=== PATIENT | male | born 1945 | race Caucasian/White ===

== ENCOUNTER 2017-05-11 09:49 | Day surgery (SDC) | payer MEDICARE, OTHER, SELFPAY ==
[2017-05-10 07:02] VITALS: BMI 26.1
[2017-05-11] VITALS (17 sets, daily range): BP systolic 109–135; BP diastolic 59–98; PULSE 62–87; RESP 15–24; TEMP 35.6–36.7; O2SAT 95–99; BMI 25.8
[2017-05-11] MEDS: Cefazolin 2 GM in Syringe IV (10:00)
[2017-05-11 10:31] LABS: Color, Urine Yellow (Yellow); Glucose, Dipstick Normal (Normal); Ketone-Dipstick Negative (Negative); Leukocyte Esterase-Dipstick 25 /ul (Negative); Nitrite-Dipstick Negative (Negative); Occult Blood-Urine 10 /ul (Negative); Protein-Dipstick Negative (Negative); Urine Bilirubin Dipstick Negative (Negative); Urine Clarity Clear (Clear); Urine Urobilinogen Normal (Normal)
[2017-05-11 10:33] LABS: White Blood Count 5.7 K/mm3 (4.4-11.0)
[2017-05-11 10:34] LABS: Absolute Lymphocyte Count 1.51 X10^3/ul (0.83-4.51); Absolute Neutrophil Count 3.6 X10^3/uL (2.0-7.7); Basophil% 0.3 % (0-1); Eosinophil# 0.19 X10^3/uL; Eosinophils% 3.3 % (0-5); Hematocrit 44.4 % (40-54); Hemoglobin 14.3 g/dl (13.0-16.5); Lymphocyte # 1.51 X10^3/ul (4.0); Lymphocyte % 26.4 % (19-41); Mean Corp Hgb Conc 32.2 g/gl (32-36); Mean Corpuscular Volume 87.1 fL (80-94); Mean Platelet Vol. 9.3 fl (6.2-12.0); Monocyte# 0.45 X10^3/uL; Monocyte% 7.9 % (0-10); Neutrophil # 3.55 X10^3/uL (2.7-7.7); Neutrophil % 62.1 % (47-70); POSITIVE COUNT NO; POSITIVE DIFFERENTIAL NO; POSITIVE MORPHOLOGY NO; Platelet Count 199 K/mm3 (150-450); RBC Distribution Width CV 14.6 % (11.6-14.6); RBC Distribution Width SD 46.4 fl (35.1-43.9)
[2017-05-11 10:35] LABS: Basophil# 0.02 X10^3/uL
[2017-05-11 10:37] LABS: Anion Gap 6 (5-15); BUN 19 mg/dL (7-18); BUN/Creat Ratio 21.5 RATIO (10-20); Calcium,Total 8.8 mg/dL (8.5-10.1); Chloride 108 mmol/L (98-107); Creatinine, Serum 0.88 mg/dL (0.70-1.30); EST Glomerular Filtration Rate 90 mL/min (>60); Est Glom Filt Rate - Afr Amer 109 mL/min (>60); Estimated Creatinine Clearance 78.35 ml/min; Glucose 92 mg/dL (70-110); Potassium 4.5 mmol/L (3.5-5.1); Sodium Level 142 mmol/L (136-145)
[2017-05-11 10:38] LABS: Red Blood Cells-Urine 0-5 SEEN /hpf (0-5); Squamous Epithelial Cells - UA 0 SEEN /hpf (0-5); White Blood Cells 0 SEEN /hpf (0-5)
[2017-05-11 10:39] LABS: Bacteria RARE /hpf (None Seen); Mucous, Urine 2+ /hpf (<or=2+)
[2017-05-11 10:41] LABS: International Normalized Ratio 1.1; Prothrombin Time (Protime)PT. 13.6 SECONDS (11.7-14.9)
[2017-05-11 12:10] LABS: Partial Thromboplast Time 29.7 Seconds (24.1-36.2)
--- NOTE | 2017-05-11 14:00 | PCM.OP.BLANK ---
Operative Report Date of Procedure: 05/11/17 Preoperative diagnosis implantation of VVI ICD for ischemic cardiomayoptahy with LVEF 30% despite revascularization and optimal medical therapy; NYHA Class I. ICD for primary prevention Postoperative diagnosis same as above After informed consent and IV antibiotics the patient was brought to the [facility] catheterization laboratory. The left side of the chest was prepped and draped in the usual sterile manner. The patient was sedated with intermittent boluses of IV Versed fentanyl and propofol as well as subcutaneous 1% lidocaine. An incision was made inferior to the clavicle to accommodate the size of the hardware device. The pocket was created using blunt and Bovie dissection. Hemostasis was obtained. Using the Seldinger technique the axillary vein was cannulated 1 time and a guidewire was advanced under fluoroscopic guidance. Over each guidewire a sheath was advanced. Through this sheath, the electrode was positioned under fluoroscopic guidance into its appropriate chamber and was actively fixated. Once actively fixated, each lead was tested to check for proper sensing, capture threshold, impedance and to exclude diaphragmatic stimulation. Once the leads were implanted and all electrical parameters were confirmed to be functioning normally with appropriate values, the leads were then sutured to the pectoralis muscle with 2-0 silk on the Silastic collar ?2. The sponge and needle count were correct. Hemostasis was obtained. Antibiotic solution was used to flush the pocket. The new device was brought to the field. The leads were placed in the appropriate position of the header of the device and were secured by the setscrews and confirmed by the tug test. The device and the leads were then placed in the pocket. The device was sutured to the pectortalis muscle. Pocket was closed with a deep layer of running 2-0 Vicryl, superficial layer of running 4-0 Vicryl and skin with Steri-Strips that were covered with a rolled 4 x 4's and Tegaderm. The patient left the lab with the device programmed to chronic parameters. There were no complications. The device implanted is a single coil ICD lead with a single chamber [place] [employer] ICD generator. Lead and device serial and model numbers are available in the chart documents provided by the device company personal service representative procedure summary.
--- NOTE | 2017-05-11 17:20 | RAD_ITS ---
STUDY: X-RAY CHEST REASON FOR EXAM: Male, 71 years old. Status post ICD. TECHNIQUE: Single AP portable view of the chest. COMPARISON: 04/03/2017. FINDINGS: Limited by numerous overlying monitor leads. Normal lung volumes. Stable nodules in the right upper lobe. No pneumothorax. Normal size heart. ICD lead terminates in the right ventricle. Normal mediastinum and leonides. Normal visualized pulmonary arteries. Normal visualized aortic arch and descending thoracic aorta. Normal visualized thoracic spine. Normal visualized ribs, clavicles, and shoulders. There is no demonstrated abnormality of the visualized soft tissue structures of the upper abdomen. RAD/Chest 1 View (Portable) IMPRESSION: No definite acute chest disease. Electronically Signed: Ricky Moss MD at 17:14 EST , Service support ,
[2017-05-11] MEDS: Clopidogrel Bisulfate 75 MG Tablet PO (17:36)
[2017-05-11] MEDS: Atorvastatin Calcium 80 MG Tablet PO (21:38)
[2017-05-11] MEDS: Carvedilol 3.125 MG TABLET PO (21:38)
[2017-05-12] VITALS (8 sets, daily range): BP systolic 98–129; BP diastolic 68–91; PULSE 64–75; RESP 16–21; TEMP 36.8; O2SAT 93–96
[2017-05-12 05:13] LABS: Hematocrit 42.3 % (40-54); Hemoglobin 14.2 g/dl (13.0-16.5)
[2017-05-12 05:37] LABS: Anion Gap 7 (5-15); BUN 20 mg/dL (7-18); BUN/Creat Ratio 22.5 RATIO (10-20); Calcium,Total 8.4 mg/dL (8.5-10.1); Chloride 105 mmol/L (98-107); Creatinine, Serum 0.89 mg/dL (0.70-1.30); EST Glomerular Filtration Rate 89 mL/min (>60); Est Glom Filt Rate - Afr Amer 108 mL/min (>60); Estimated Creatinine Clearance 77.47 ml/min; Glucose 91 mg/dL (70-110); Potassium 4.3 mmol/L (3.5-5.1); Sodium Level 139 mmol/L (136-145)
--- NOTE | 2017-05-12 05:55 | RAD_ITS ---
STUDY: X-RAY CHEST REASON FOR EXAM: Male, 71 years old. Status post ICD placement. TECHNIQUE: Frontal and lateral views of the chest. COMPARISON: 05/11/2017. 11/30/2016. FINDINGS: There is mild chronic interstitial prominence in the lungs. There is no demonstrated pulmonary infiltrate. There is a calcified pleural plaque overlying the dome of the right hemidiaphragm, suggesting asbestosis. There is no visualized free pleural effusion. Normal size heart. There is an implanted ventricular pacemaker/defibrillator, with its tip in the expected region of the right ventricle. Normal mediastinum and leonides. Normal visualized pulmonary arteries. Normal visualized aortic arch and descending thoracic aorta. There are mild degenerative changes of the visualized thoracic spine. Normal visualized ribs, clavicles, and shoulders. There is no demonstrated abnormality of the visualized soft tissue structures of the upper abdomen. RAD/Chest PA and Lateral IMPRESSION: Mild chronic interstitial prominence and calcified pleural plaque formation, consistent with asbestosis. Implanted pacemaker/defibrillator. No evidence for acute cardiopulmonary pathology. Electronically Signed: Emanuel De Los Santos MD at 5:50 EST , Service support ,
--- NOTE | 2017-05-12 08:32 | PCM.PACRNU ---
Pacer Nurse Hospital Visit Notes: Single Chamber ICD Evaluation: 1st day post implant ICD check completed at bedside CVICU#[id number]. Interrogation shows no VT/VF episodes. Left pectoral pocket/incision DSD intact w/o drainage or hematoma noted. Presenting rhythm shows NSR @ 68 bpm. TRAFFIC LIEUTENANT=0%. Battery longevity >8 yrs. Lead impedance, sensing and pace/sense threshold stable. No parameter changes made. Counters cleared. Pt instructed on wound care and left arm restrictions. Dr. Tobar and Dr. Garcia notified of above findings. Pt wound check is scheduled for Monday05/19/17 @ 11:30am. Kishan Castañeda RN - Pacer Check Procedure Procedures: 25744 ICD Eval Single
--- NOTE | 2017-05-12 08:53 | PCM.PN.CARD ---
Subjectve: The patient is status post primary prevention ICD implant. He has no complaints of ongoing chest discomfort or difficulty breathing. He states he is feeling well. Objective: Vital Signs Temp Pulse Resp BP Pulse Ox 98.2 F 73 18 124/86 H 96 05/12/17 07:00 05/12/17 07:00 05/12/17 07:00 05/12/17 07:00 05/12/17 07:00 Oxygen Delivery Method Room Air Weight: 180 lb Body Mass Index (BMI) 25.8 Intake and Output for Last 24 Hours 05/10/17 05/11/17 05/12/17 23:59 23:59 23:59 Intake Total 0 / 0 360 / 360 Output Total 0 / 0 375 / 375 Balance 0 / 0 -15 / -15 General: Awake, Alert, Oriented x 3, Cooperative, No Acute Distress Neck: No JVD Chest Wall: Left Pectoral Incision - Dressing: Clean and dry Lungs: Clear to auscultation Cardiovascular: Regular Rhythm, Normal S1, Normal S2 Abdomen: Bowel Sounds Present, Soft, Non Tender Extremities: No edema 05/11/17 09:59: WBC 5.7, RBC 5.10, Hgb 14.3, Hct 44.4, MCV 87.1, MCH 28.0, MCHC 32.2, RDW 14.6, RDW Differential 46.4 H, Plt Count 199, MPV 9.3, Immature Gran % (Auto) 0.000, Neut % (Auto) 62.1, Lymph % (Auto) 26.4, [place] % (Auto) 7.9, Eos % (Auto) 3.3, Baso % (Auto) 0.3, Absolute Neuts (auto) 3.6, Total Counted Not Reportable 05/11/17 09:59: PT 13.6, INR 1.1, APTT 29.7 05/11/17 09:59: Urine Color Yellow, Urine Clarity Clear, Urine pH 7.0, Ur Specific [place] 1.010, Urine Protein Negative, Urine Glucose (UA) Normal, Urine Ketones Negative, Urine Occult Blood 10 H, Urine Nitrite Negative, Urine Bilirubin Negative, Urine Urobilinogen Normal, Ur Leukocyte Esterase 25 H, Urine RBC 0-5 SEEN, Urine WBC 0 SEEN 05/11/17 09:59: Sodium 142, Potassium 4.5, Chloride 108 H, Carbon Dioxide 28.0, Anion Gap 6, BUN 19 H, Creatinine 0.88, Est GFR (MDRD) Af Amer 109, Est GFR (MDRD) Non-Af 90, BUN/Creatinine Ratio 21.5 H, Glucose 92, Calcium 8.8 05/12/17 05:05: Hgb 14.2, Hct 42.3 05/12/17 05:05: Sodium 139, Potassium 4.3, Chloride 105, Carbon Dioxide 27.0, Anion Gap 7, BUN 20 H, Creatinine 0.89, Est GFR (MDRD) Af Amer 108, Est GFR (MDRD) Non-Af 89, BUN/Creatinine Ratio 22.5 H, Glucose 91, Calcium 8.4 L Rhythm: Sinus rhythm PPM: Per the [facility] PPM/ICD nurse: The device is been reported as functioning appropriately. CXR: Per radiology: No acute post procedure related adverse events Assessment/Plan 1. CAD status post [place] post LAD PCI At the present time the patient appears to be without acute symptoms. He will continue medical management for his underlying CAD process. 2. Ischemic mediated cardiomyopathy The patient has been reported as having an underlying ischemic mediated cardiomyopathy. He appears without symptoms of acute CHF or pulmonary edema at this time. He will continue medical management and follow-up. 3. Status post primary prevention ICD placement The patient is now status post primary prevention ICD placement. He appears to be doing well with no post procedure related adverse events. He will continue with future outpatient cardiovascular follow-up. 4. Hyperlipidemia The patient will continue medical management and follow-up as deemed appropriate. 5. Hypertension The patient will continue medical therapy with adjustment as needed. Overall the patient appears to be symptomatically and hemodynamically stable at this time. He will be released home for continued outpatient cardiovascular follow-up. Comment: Time spent in the patient's discharge evaluation and care: 30 minutes. This note was generated with [employer]ation software. Every effort was made to ensure accuracy, however, computerized staff toxicologist mistakes may persist.
--- NOTE | 2017-05-12 08:59 | PN.CARD_ITS ---
Subjectve: The patient is status post primary prevention ICD implant. He has no complaints of ongoing chest discomfort or difficulty breathing. He states he is feeling well. Objective: Vital Signs Temp Pulse Resp BP Pulse Ox 98.2 F 73 18 124/86 H 96 05/12/17 07:00 05/12/17 07:00 05/12/17 07:00 05/12/17 07:00 05/12/17 07:00 Oxygen Delivery Method Room Air Weight: 180 lb Body Mass Index (BMI) 25.8 Intake and Output for Last 24 Hours 05/10/17 05/11/17 05/12/17 23:59 23:59 23:59 Intake Total 0 / 0 360 / 360 Output Total 0 / 0 375 / 375 Balance 0 / 0 -15 / -15 General: Awake, Alert, Oriented x 3, Cooperative, No Acute Distress Neck: No JVD Chest Wall: Left Pectoral Incision - Dressing: Clean and dry Lungs: Clear to auscultation Cardiovascular: Regular Rhythm, Normal S1, Normal S2 Abdomen: Bowel Sounds Present, Soft, Non Tender Extremities: No edema 05/11/17 09:59: WBC 5.7, RBC 5.10, Hgb 14.3, Hct 44.4, MCV 87.1, MCH 28.0, MCHC 32.2, RDW 14.6, RDW Differential 46.4 H, Plt Count 199, MPV 9.3, Immature Gran % (Auto) 0.000, Neut % (Auto) 62.1, Lymph % (Auto) 26.4, [place] % (Auto) 7.9, Eos % (Auto) 3.3, Baso % (Auto) 0.3, Absolute Neuts (auto) 3.6, Total Counted Not Reportable 05/11/17 09:59: PT 13.6, INR 1.1, APTT 29.7 05/11/17 09:59: Urine Color Yellow, Urine Clarity Clear, Urine pH 7.0, Ur Specific [place] 1.010, Urine Protein Negative, Urine Glucose (UA) Normal, Urine Ketones Negative, Urine Occult Blood 10 H, Urine Nitrite Negative, Urine Bilirubin Negative, Urine Urobilinogen Normal, Ur Leukocyte Esterase 25 H, Urine RBC 0-5 SEEN, Urine WBC 0 SEEN 05/11/17 09:59: Sodium 142, Potassium 4.5, Chloride 108 H, Carbon Dioxide 28.0, Anion Gap 6, BUN 19 H, Creatinine 0.88, Est GFR (MDRD) Af Amer 109, Est GFR ( MDRD) Non-Af 90, BUN/Creatinine Ratio 21.5 H, Glucose 92, Calcium 8.8 05/12/17 05:05: Hgb 14.2, Hct 42.3 05/12/17 05:05: Sodium 139, Potassium 4.3, Chloride 105, Carbon Dioxide 27.0, Anion Gap 7, BUN 20 H, Creatinine 0.89, Est GFR (MDRD) Af Amer 108, Est GFR ( MDRD) Non-Af 89, BUN/Creatinine Ratio 22.5 H, Glucose 91, Calcium 8.4 L Rhythm: Sinus rhythm PPM: Per the [facility] PPM/ICD nurse: The device is been reported as functioning appropriately. CXR: Per radiology: No acute post procedure related adverse events Assessment/Plan 1. CAD status post [place] post LAD PCI At the present time the patient appears to be without acute symptoms. He will continue medical management for his underlying CAD process. 2. Ischemic mediated cardiomyopathy The patient has been reported as having an underlying ischemic mediated cardiomyopathy. He appears without symptoms of acute CHF or pulmonary edema at this time. He will continue medical management and follow-up. 3. Status post primary prevention ICD placement The patient is now status post primary prevention ICD placement. He appears to be doing well with no post procedure related adverse events. He will continue with future outpatient cardiovascular follow-up. 4. Hyperlipidemia The patient will continue medical management and follow-up as deemed appropriate. 5. Hypertension The patient will continue medical therapy with adjustment as needed. Overall the patient appears to be symptomatically and hemodynamically stable at this time. He will be released home for continued outpatient cardiovascular follow-up. Comment: Time spent in the patient's discharge evaluation and care: 30 minutes. This note was generated with [employer] software. Every effort was made to ensure accuracy, however, computerized brick and tile making machine operator mistakes may persist.
--- NOTE | 2017-05-12 10:10 | NURSING ---
Pt reports he does not want to take his morning meds here, he will take them at home.
== END 2017-05-12 10:20 | disposition home or self-care (01) ==
LOC: CLSP 10:05 → ICU 14:33
PROVIDERS: Visit Provider Internal Medicine Cardiovascular Disease
DX: I25.5 Ischemic cardiomyopathy (principal); I25.2 Old myocardial infarction; I10 Essential (primary) hypertension; I25.10 Atherosclerotic heart disease of native coronary artery without angina pectoris; E78.00 Pure hypercholesterolemia, unspecified; Z95.5 Presence of coronary angioplasty implant and graft; Z79.02 Long term (current) use of antithrombotics/antiplatelets; Z79.82 Long term (current) use of aspirin; Z79.899 Other long term (current) drug therapy; Z00.6 Encounter for examination for normal comparison and control in clinical research program
CPT/HCPCS: 33249; 36415; 71045; 71046; 80048; 81001; 85014; 85018; 85025; 85610; 85730; 93641; 99152; 99153; J7040; J7050; C1894

== ENCOUNTER → 2018-06-07 12:37 | Outpatient (CLI) | payer MEDICARE, OTHER, SELFPAY ==
[2018-05-21 14:34] VITALS: BMI 26.8
--- NOTE | 2018-06-07 12:39 | ECHOD_ITS ---
Reason For Study: CHF Procedure This was a 2D Doppler, Color Flow transthoracic echocardiogram. Exam performed in department. Left Ventricle Severely dilated left ventricle. The estimated ejection fraction is 25-30 %. Stage 1 diastolic dysfunction. There are regional wall motion abnormalities as specified. Right Ventricle Normal size and thickness. ICD or pacer leads identified within the right ventricle. Normal systolic function. Atria Normal left atrium. Normal right atrium. Normal atrial septum. Mitral Valve The mitral valve is structurally normal. No prolapse or stenosis seen. Trivial mitral valve insufficiency. Tricuspid Valve Normal tricuspid valve. Trivial tricuspid valve insufficiency. Right ventricular systolic pressure estimated to be 35 mmHg. Aortic Valve Normal aortic valve. Trisinus/trileaflet aortic valve. Pulmonic Valve Normal pulmonic valve. Great Vessels Normal aortic root. Normal arch. Normal inferior vena cava. Inferior vena cava collapse with sniff. Pericardium/Pleural No pericardial effusion. MMode/2D Measurements & Calculations LVIDd: 5.9 cm IVSd: 0.72 cm Ao root diam: 3.5 cm LVIDs: 5.1 cm LVPWd: 0.98 cm RVDd: 3.4 cm FS: 13.7 % LAV(MOD-bp): 55.4 ml LVAd ap4: 43.5 cm2 SV(MOD-sp4): 46.7 ml LAV(MOD-bp) Indexed: 27.5 ml/m2 EDV(MOD-sp4): 164.7 ml LAV(MOD-sp2): 57.4 ml EDV(sp4-el): 176.8 ml LAV(MOD-sp4): 53.2 ml LVAs ap4: 35.3 cm2 ESV(MOD-sp4): 118.0 ml ESV(sp4-el): 124.4 ml EF(MOD-sp4): 28.4 % EF(sp4-el): 29.6 % SV(sp4-el): 52.4 ml LA A4 area: 19.9 cm2 LA dimension(2D): 3.5 cm RA A4 area: 15.5 cm2 Time Measurements MV dec time: 0.27 sec Doppler Measurements & Calculations MV E max harpreet: 36.0 cm/sec Lat Peak E' Harpreet: 4.3 cm/sec Med Peak E' Harpreet: 4.2 cm/sec MV A max harpreet: 78.8 cm/sec E/E' lat: 8.3 E/E' med: 8.6 MV E/A: 0.46 Ao V2 max: 109.8 cm/sec LV V1 max: 62.8 cm/sec PA V2 max: 109.2 cm/sec Ao max P.8 mmHg LV V1 max P.6 mmHg TR max harpreet: 272.7 cm/sec TR max P.8 mmHg Interpretation Summary Severely dilated left ventricle. The estimated ejection fraction is 25-30 %. Stage 1 diastolic dysfunction. There are regional wall motion abnormalities as specified. Trivial tricuspid valve insufficiency. Right ventricular systolic pressure estimated to be 35 mmHg. Compared to echo report dated 03/29/2017, no appreciable changes noted. Ordering Physician: Grant Rubin Referring Physician: AYLA BANG Performed By: Betty Lan RDCS
== END ==
PROVIDERS: Family Provider Student in an Organized Health Care Education/Training Program; PCP Student in an Organized Health Care Education/Training Program; Referring Provider Internal Medicine Cardiovascular Disease; Visit Provider Internal Medicine Cardiovascular Disease
DX: I25.2 Old myocardial infarction (principal)
CPT/HCPCS: 93306

== ENCOUNTER → 2019-01-03 | Outpatient (CLI) | payer MEDICARE, OTHER, SELFPAY ==
[2018-12-17 12:50] VITALS: BMI 26.5
--- NOTE | 2019-01-03 10:04 | STEWCON_ITS ---
Reason For Study: CAD/ASHD Stress Results Protocol: Stress Echocardiogram Maximum Predicted HR: 146 bpm Target HR: 124 bpm % Maximum Predicted HR: 89 % DurationHeart Rate Stage (mm:ss) (bpm) BP Comment BASELINE 54 118/78DILUTED DEFINITY 3CC GIVEN DURING STRESS ALEX PROTOCOL- STAGE 1 3:00 102 122/78NO SX ALEX PROTOCOL- STAGE 2 3:00 116 130/80NO SX ALEX PROTOCOL- STAGE 3 1:16 130 / NO SX, JUST TIRED RECOVERY 67 132/82 Stress Duration: 7:16 mm:ss Maximum Stress HR: 130 bpm Baseline Echocardiogram Findings The estimated ejection fraction is 25 %. Severely dilated left ventricle. Stress Echo Wall motion Data Resting WM Intermediate WM Stress WM Resting Wall Motion Wall Motion Stress Basal anteroseptal: Akinetic. Mid-Posterior: Mildly Mid-Anterior : Akinetic. hypokinetic. Mid-anteroseptal : Akinetic. Mid-Inferior: Mildly hypokinetic. Anterior [place] : Akinetic. EKG Data The baseline ECG displays normal sinus rhythm. The patient exercised according to the regular Alex protocol for a total duration of 7:16. The maximum heart rate attained was 130 beats per minute. This was 89% of maximum predicted heart rate. The patient exercised into stage 3 of the Alex protocol. During stress, there were no ST or T wave changes noted to suggest ischemia. No clinical angina was noted. Doppler Measurements & Calculations TR max aida: 291.6 cm/sec TR max P.0 mmHg Interpretation Summary The estimated ejection fraction is 25 %. Severely dilated left ventricle. Mid-Inferior: Mildly hypokinetic Abnormal, adequate, treadmill echocardiogram. Positive for ischemia by echocardiographic criteria. No anginal symptoms noted. Patient at baseline mid anteroseptal, anterior, and anterior apical akinesis from previous myocardial infarction, which remained akinetic during exercise. Patient did develop subtle inferior and posterior hypokinesis at peak exercise. Rare PVC noted. Appropriate blood pressure response to exercise. Average exercise capacity for age. Final LVEF of 25%. Poor echo windows requiring Definity agent may affect image interpretation. No complication. The study was technically difficult. Contrast injection was performed. Ordering Physician: Grant Rubin MD Referring Physician: Grant Rubin Performed By: Mojgan Brown RDCS
[2019-01-03 12:03] LABS: AST(SGOT) 26 U/L (15-37); Alanine Aminotransfer ALT/SGPT 28 U/L (16-61); Albumin, Serum 3.7 g/dL (3.2-5.0); Alkaline Phosphatase 101 U/L (45-117); Bilirubin, Direct 0.31 mg/dL (0.00-0.30); Cholesterol 118 mg/dL (200); Globulin 3.7 g/dL (2.2-4.2); High Density Lipoprotein 52 mg/dL; Protein, Total 7.4 g/dL (6.4-8.2); Triglycerides 84 mg/dL; Very Low Density Lipoprotein 17 mg/dL (5-40)
== END | disposition home or self-care (01) ==
PROVIDERS: Nurse Practitioner Family; Referring Provider Internal Medicine Cardiovascular Disease; Visit Provider Internal Medicine Cardiovascular Disease
DX: I25.10 Atherosclerotic heart disease of native coronary artery without angina pectoris (principal); E78.5 Hyperlipidemia, unspecified; I25.2 Old myocardial infarction; Z95.810 Presence of automatic (implantable) cardiac defibrillator
CPT/HCPCS: 36415; 80061; 80076; 93017; 93350; Q9957; A4216; C8928

== ENCOUNTER → 2019-01-07 13:50 | Outpatient (CLI) | payer MEDICARE, OTHER, SELFPAY ==
[2018-12-17 12:50] VITALS: BMI 26.5
[2019-01-07 15:07] LABS: Hematocrit 43.3 % (40-54); Hemoglobin 13.7 g/dL (13.0-16.5); Mean Corp Hgb Conc 31.6 g/dL (32-36); Mean Corpuscular Hgb 28.2 pg (27.0-32.0); Mean Corpuscular Volume 89.1 fL (80-94); Mean Platelet Vol. 9.5 fl (6.2-12.0); Platelet Count 218 K/mm3 (150-450); RBC Distribution Width CV 14.5 % (11.6-14.6); Red Blood Count 4.86 M/mm3 (4.6-6.2); White Blood Count 6.6 K/mm3 (4.4-11.0)
[2019-01-07 15:25] LABS: Prothrombin Time (Protime)PT. 13.1 SECONDS (11.7-14.9)
[2019-01-07 15:26] LABS: Partial Thromboplast Time 27.6 Seconds (24.1-36.2)
[2019-01-07 15:30] LABS: Anion Gap 5 (5-15); BUN 25 mg/dL (7-18); BUN/Creat Ratio 27.4 RATIO (10-20); Calcium,Total 8.6 mg/dL (8.5-10.1); Chloride 106 mmol/L (98-107); Creatinine, Serum 0.91 mg/dL (0.70-1.30); EST Glomerular Filtration Rate 86 mL/min (>60); Est Glom Filt Rate - Afr Amer 104 mL/min (>60); Glucose 109 mg/dL (74-106); Potassium 3.9 mmol/L (3.5-5.1); Sodium Level 140 mmol/L (136-145)
== END ==
PROVIDERS: Referring Provider Internal Medicine Cardiovascular Disease; Visit Provider Internal Medicine Cardiovascular Disease
DX: I25.10 Atherosclerotic heart disease of native coronary artery without angina pectoris (principal); I25.2 Old myocardial infarction; I25.5 Ischemic cardiomyopathy; R94.39 Abnormal result of other cardiovascular function study; Z95.5 Presence of coronary angioplasty implant and graft; Z79.899 Other long term (current) drug therapy; Z95.810 Presence of automatic (implantable) cardiac defibrillator
CPT/HCPCS: 80048; 85027; 85610; 85730

== ENCOUNTER 2019-01-09 06:47 | Day surgery (SDC) | payer MEDICARE, OTHER, SELFPAY ==
[2018-12-17 12:50] VITALS: BMI 26.5
--- NOTE | 2019-01-08 14:41 | RAD_ITS ---
STUDY: X-RAY CHEST REASON FOR EXAM: Male, 73 years old. Pre-op for heart catheter TECHNIQUE: PA and lateral views of the chest. COMPARISON: 05/12/2017 FINDINGS: Left chest wall pacing device The lungs are clear and expanded. There is no demonstrated pleural abnormality. Normal size heart. Normal mediastinum and leonides. Normal visualized pulmonary arteries. Normal visualized aortic arch and descending thoracic aorta. Normal visualized thoracic spine. Normal visualized ribs, clavicles, and shoulders. There is no demonstrated abnormality of the visualized soft tissue structures of the upper abdomen. RAD/Chest PA and Lateral IMPRESSION: Normal x-ray examination of the chest. Electronically Signed: Yefri Child DO at 17:59 EDT Tel , Service support ,
--- NOTE | 2019-01-09 10:35 | PCM.HP.BLA ---
Problem List (1) Acute ST elevation myocardial infarction Status: Acute (2) Atherosclerotic heart disease of [place] coronary artery without angina pectoris Status: Chronic History and Physical Date of Admission: 01/09/19 [facility] [address] [place] [address] OFFICE VISIT Date of Service: 12/17/18 MR#: [id number] Acct: [id number] Name: ASHLYN MUNSON Rep #: [id number] : 1945 Provider: Grant Rubin MD Age/Sex: 73/M Location: [facility] Status: Signed HPI HPI History of Present Illness Details: HPI Chief Complaint: Routine f/u Details: Details: Mr. Munson is a very pleasant 73-year-old nondiabetic gentleman with hypertension, hypercholesterolemia, who presented on 11/30/16 with acute anterior wall myocardial infarction with approximate 1.5 hour delayed presentation. He was emergently brought to the [facility] where he underwent emergent catheterization which discovered an occluded LAD. the patient developed his chest pain either immediately before or right after undergoing a skydiving exercise. Patient underwent emergent angioplasty and drug-eluting stenting to his proximal LAD receiving a 3.0X 12 Synergy stent. His left circumflex was angiographically normal, and his right coronary artery had a 60% stenosis. His echocardiogram demonstrated an EF around 35-45% with inferior apical and anterior apical hypokinesis. Patient initially was on Brilinta, but could not tolerate it due to dizziness. He was switched to Plavix, and his dizziness has resolved. Despite my admonishment about skydiving he is continued to skydiving after his TN and prior to initiating cardiac rehab. Patient underwent stress echocardiogram on 01/18/17 which was negative for inducible ischemia of the inferior posterior wall. He is EF at that time was 35%. Repeat echocardiogram after cardiac rehab showed persistent severe anterior LV dysfunction with an EF of 35%. Repeat echo as of 06/07/2018 shows the following: Severely dilated left ventricle. The estimated ejection fraction is 25-30 %. Stage 1 diastolic dysfunction. There are regional wall motion abnormalities as specified. Trivial tricuspid valve insufficiency. Right ventricular systolic pressure estimated to be 35 mmHg. Compared to echo report dated 03/29/2017, no appreciable changes noted. He underwent single-chamber AICD placement without complications and is now here in follow-up. Fortunately, he denies any chest pain, angina, shortness of breath or dyspnea on exertion. We discontinued his lisinopril due to dry hacking cough, and is tolerating losartan well. He denies any fatigue. Despite my concerns, the patient is continued to proceed with skydiving and has had no difficulty whatsoever. He reports that his harness does not impact or come near his defibrillator. He has had no defibrillator discharges. He is taking and tolerating his medicines well. In our office today's blood pressure is 110/80, and pulse is 68 and regular. His physical exam is as below. His lipids as of 12/01/16 showed LDL of 124 and an HDL of 43.repeat lipids as of 01/18/17 showed HDL of 45 and LDL 41. Repeat lipids are pending. Intake Vital Signs 12/17/18 Height 5 ft 10 in 12/17/18 Weight: 185 lb 12/17/18 Body Mass Index (BMI) 26.5 12/17/18 Blood Pressure 110/80 12/17/18 Blood Pressure Location Lt brachial 12/17/18 Blood Pressure Position Sitting 12/17/18 Respiratory Rate 20 H 12/17/18 Pulse Rate 68 12/17/18 Pulse Source Auscultation Intake Visit Reasons: 6 M FU Site Promotion Agent Required: No Accompanied by: Is patient in pain?: No Allergies ticagrelor [From Brilinta] Allergy (Severe, Verified 12/17/18 13:02) severe dizziness/ vomiting lisinopril [From Zestril] Allergy (Intermediate, Verified 12/17/18 13:02) cough Sulfa (Sulfonamide Antibiotics) Allergy (Verified 12/17/18 13:02) Other Medications Aspirin [Aspirin, Baby] 81 mg PO DAILY@0800 11/30/16 [History Confirmed 12/14/18] atorvastatin 80 mg tablet 80 mg PO QHS #90 tab 12/17/18 [Rx Confirmed 12/17/18] carvedilol 3.125 mg tablet 3.125 mg PO BID #90 tab 12/17/18 [Rx Confirmed 12/17/18] clopidogrel 75 mg tablet 75 mg PO QDAY #90 tab 12/17/18 [Rx Confirmed 12/17/18] furosemide 20 mg tablet 20 mg PO DAILY #30 tab 12/17/18 [Rx Confirmed 12/17/18] losartan 25 mg tablet 25 mg PO DAILY #90 tab 12/17/18 [Rx Confirmed 12/17/18] [facility] Medical History History of ST elevation myocardial infarction (Chronic 11/30/16) Atherosclerotic heart disease of [place] coronary artery without angina pectoris (Chronic) HLD (hyperlipidemia) (Chronic) HTN (hypertension) (Chronic) Ischemic cardiomyopathy (Chronic) Dizziness (Chronic) Encounter for long-term (current) use of high-risk medication (Chronic) Surgical History Stented coronary artery (Chronic 11/30/16) Implantable cardioverter-defibrillator (ICD) in situ (Chronic 05/11/17) History of coronary artery stent placement (Chronic 11/30/16) Family History Father CAD (coronary artery disease) Social History (Updated 12/17/18 @ 13:20 by Grant Rubin MD) Smoking Status: Never smoker alcohol intake: current substance use type: does not use ROS Const Const: Positive for other (Feels well); negative for fatigue, weakness, body ache, fever(s), headache(s), chills, frequent falls, night sweats, daytime sleepiness, difficulty sleeping, excessive sweating, weight gain, weight loss, increased appetite, poor appetite or anorexia Eyes Eyes: Negative for blind spots, loss of peripheral vision, transient loss of vision, blurry vision, change in vision, double vision, floaters, tunnel vision or other ENT ENT: Negative for headache(s), dizziness, hearing loss, tinnitus, Nosebleed/epistaxis, balance problems, post nasal drip, lip swelling, tongue swelling, bleeding gums, hoarseness, neck pain, dry mouth or other Cardio Chest Pain: No Palpitations: No Edema: None Muscle aches with walking: None Resp Respiratory: Negative for SOB with activity, SOB at rest, SOB orthopnea\SOB lying down, Cough, Coughing up blood/hemoptysis, chest congestion, pain on inspiration, snoring, stridor, wheezing, crackles, paroxysmal nocturnal dyspnea or other GI GI: Negative nausea, vomiting, heartburn, constipation, belching, bloating, cramping, vomiting blood/hematemesis, bright, red blood in stools, black,tarry stools, loose stools, Difficulty Swallowing or other : Negative for hematuria, frequent nighttime urination/ nocturia, erectile dysfunction or abnormal vaginal bleeding Musc Musc: Negative for muscle aches/ myalgia, muscle weakness, joint pain or balance problems Skin Skin: Negative redness, non-healing lesions, rash, unusual bruising, skin ulcer, wounds, jaundice or other Neuro Neuro: Negative for dizziness, lightheadedness, near syncope, syncope, orthostatic symptoms, frequent falls, headache(s), weakness, confusion, memory loss, restless legs, blurry vision, double vision, vertigo, seizures, lack of coordination or other [place] Hematologic/Lymphatic: Negative for easy bleeding, easy bruising, enlarged lymph nodes or other Endo Endo: Negative for fatigue, cold intolerance, heat intolerance, excessive sweating, flushing, increased thirst/drinking, increased hunger, hair loss, hair growth or other Psych Psych: Negative for anxiety, depression, thoughts of harming anyone, thoughts of harming yourself, visual hallucinations, panic attacks or audible hallucinations Allergy Allergy/Immunology: Negative for throat swelling, Negative for tongue swelling, Negative for hives, Negative for rash, Negative for lip swelling Cardiology Exam Const Appearance: cooperative, healthy appearing and no acute distress Nutritional Appearance: well nourished Orientation: alert, oriented x3 and oriented to person Head Head: normal to inspection, normocephalic and atraumatic Nose: external nose normal Face and Sinus: face symmetric Mouth: oral mucosae normal Eyes General: appearance normal, both eyes and all related structures Eyelids: eyelids normal Conjunctivae: conjunctivae normal Pupils: PERRL and normal by confrontation EOM: EOM intact bilaterally Neck Neck: normal visual inspection and full ROM Carotids: normal carotid upstroke Chest Chest inspection: normal inspection of the chest Auscultation: Bilateral: Clear to Auscultation Cardio Palpation: normal PMI Rate: regular rate Rhythm: regular rhythm Heart sounds: S1 normal and S2 normal GI GI: normal to inspection, no hepatosplenomegaly and bowel sounds present Neuro General: alert, awake, oriented x3, CN's II-XI intact bilaterally and moves all extremities Skin Skin: no rashes or lesions noted Extremities Pulses: Normal: Right Femoral Pulse, Left Femoral Pulse, Right Dorsalis Pedis Pulse, Left Dorsalis Pedis Pulse, Right Posterior Tibial Pulse, Left Posterior Tibial Pulse, Right Radial Pulse, Left Radial Pulse Lower Extremity Edema: None: Bilateral Psych Psychological: normal affect Assessment & Plan 1. Atherosclerotic heart disease of [place] coronary artery without angina pectoris I25.10 Plan 1. Coronary artery disease: No exertional anginal symptoms at this time although the patient did not have appreciable chest pain symptoms when he originally presented with his acute anterior wall myocardial infarction. Patient has remaining 60% stenosis in his mid RCA which has not been evaluated in the better part of 2 years. I recommend the patient continue his baby aspirin, Coreg, Plavix, losartan and Lasix. In addition I recommend he undergo a repeat treadmill echocardiogram to determine if he has any evidence of inferior ischemia that may mandate additional stenting of his RCA. If this is grossly abnormal for ischemia, I would recommend a repeat catheterization. If it is negative for ischemia we will hold off on catheterization Orders Orders: Stress Test Echo w/o Contrast Today 2. HLD (hyperlipidemia) E78.5 Plan . 2. Hyperlipidemia: We are awaiting a repeat lipid profile. Continue Lipitor therapy. 3. Return office in 6 months. This note was generated using a voice recognition system and there may be incorrect words, spelling or punctuation that were not noted when reviewing the office note prior to saving. Orders Orders: Stress Test Echo w/o Contrast Today Plan Detail Other Orders Orders: Stress Test Echo w/o Contrast Today I25.5, Z95.810 Other Medications Refilled: atorvastatin 80 mg PO QHS 90 tabs 3RF carvedilol 3.125 mg PO BID 90 tabs 3RF clopidogrel (Plavix) 75 mg PO QDAY 90 tabs 3RF furosemide 20 mg PO DAILY 30 tabs 3RF losartan 25 mg PO DAILY 90 tabs 3RF Follow Up +6M (Rubin) Coding Level of Care Code Off vis,est,level 3 Diagnoses Atherosclerotic heart disease of [place] coronary artery without angina pectoris I25.10 HLD (hyperlipidemia) E78.5 Coding Level of Care Code Off vis,est,level 3 Diagnoses Atherosclerotic heart disease of [place] coronary artery without angina pectoris I25.10 HLD (hyperlipidemia) E78.5 Supplemental Info Supplemental Information Labs LDL Cholesterol 41 mg/dL (0-130) 01/18/17 HDL Cholesterol 45 mg/dL (40-) 01/18/17 Triglycerides 90 mg/dL (-199) 01/18/17 VLDL Cholesterol 18 mg/dL (5-40) 01/18/17 Diagnostics Electrocardiogram 04/03/17 Echocardiogram 06/07/18 Pacemaker Check 11/08/18 Chest X-Ray 05/12/17 12/17/18 1320 <Electronically signed by Grant Rubin MD> Date Grant Rubin MD Cosigner Signature: Date (if applicable) CC: OUT OF TOWN DOCTOR ~ Interventional cardiology addendum: Patient was seen and examined on day of procedure. No interim changes noted. The risks/benefits of the procedure were thoroughly explained the patient including specific attention to lack of on-site surgical back-up, and informed consent was obtained. We will proceed with left heart catheterization. Results to follow.
--- NOTE | 2019-01-17 09:58 | CL.D_ITS ---
Patient Name: ASHLYN ANSARI Study Date: 01/09/2019 Performing: Grant Rubin MD Ht: 70.07 inches 178 cm : 1945 Wt: 182.98 lbs 83 kg Age: 73 Gender: male BSA: 2.01 PROCEDURE(S) PERFORMED NI07-GLL/COR/LV CLINICAL PROFILE AND INDICATIONS Indications: LV Dysfunction, LV Dysfunction, Stable Known CAD Heart Failure: NYHA Class: 1, Newly Diagnosed: No Stress/Imaging Date: 01/04/2019Stress Echocardiogram: Indeterminant Angina Classification Anginal Classification w/in 2 Weeks: No symptoms CAD Presentations: No Sxs, no angina. Comorbidities/Risk Factors: Hypertension Dyslipidemia Prior CHF Prior PCI CONCLUSIONS Non obstructive coronary arteries Global LV systolic dysfunction- Severe LVEF: by LV gram 10-15 % Depressed Left Ventricular systolic function - Severe Elevated Left Ventricular End Diastolic Pressure RECOMMENDATIONS Management as per referring Dispatch Officer Increase losartan to 25mg po bid. Manual sheath removal. DESCRIPTION OF PROCEDURE The patient arrived to the procedure lab. The risks and benefits of the procedure as well as a full d escription of our services here and current unavailability of surgical backup were fully explained to the patient and/or their significant other prior to the catheterization. The Timeout was completed, verifying the correct patient and procedure. The patient's procedural site was prepped and draped in the usual fashion. Local anesthetic was given subcutaneously to right groin region with Lidocaine 2%. Using a modified Seldinger technique, arterial access was obtained via the right femoral artery, a 4 Fr sheath was inserted Left Coronary Artery selective angiography was performed in multiple views us ing a 4 Fr. JL5 catheter. Right Coronary Artery selective angiography was then performed in multiple views using a 4 Fr. 3DRC catheter. Left Ventriculography was performed in WERNER projection using a 4 Fr . Pigtail catheter. LV to AO pullback pressures were then recorded.The arterial sheath was pulled and manual compression applied until hemostasis is achieved. CORONARY ANGIOGRAPHY DOMINANCE: Left Dominant LEFT HEART ASSESSMENT Left Ventricular Ejection Fraction: by LV Gram 15 % Global Hypokinesis - Severe Depressed Left Ventricular systolic function LVEDP: 35 mmHg LEFT MAIN: Angiographically normal LEFT ANTERIOR DESCENDING ARTERY: PROX LAD: Previously placed stent is patent MID LAD: 50 % Stenosis (small vessel, no stenting needed) CIRCUMFLEX ARTERY: Angiographically normal RIGHT CORONARY ARTERY: MID RCA: Mild luminal irregularities less than 30% COMPLICATIONS No Complications PROCEDURE MEDICATIONS Oxygen: 2 L/min via nasal cannula Nitro Tab 0.4 mg SL 01/09/2019 10:50:04 SUMMARY OF HEMODYNAMIC DATA Time AIR REST ECG 07:21:40 ECG 09:27:47 AO 164/102 (128) SA 10:41:13 LV 154/-2, 34 10:47:31 LV 154/-1, 33 10:47:39 LVp 152/-4, 36 10:47:49 AOp 155/85 (114) 10:47:54 Signed By Grant Rubin MD On 01/09/2019 11:00:40 Signed By Grant Rubin MD On 01/09/2019 11:00:06 Grant Rubin MD
== END 2019-01-09 15:10 | disposition home or self-care (01) ==
LOC: CLSP 06:47
PROVIDERS: Referring Provider Internal Medicine Cardiovascular Disease; Visit Provider Internal Medicine Cardiovascular Disease
DX: I25.10 Atherosclerotic heart disease of native coronary artery without angina pectoris (principal); I25.2 Old myocardial infarction; E78.5 Hyperlipidemia, unspecified; I11.9 Hypertensive heart disease without heart failure; I25.5 Ischemic cardiomyopathy; Z95.810 Presence of automatic (implantable) cardiac defibrillator; Z79.02 Long term (current) use of antithrombotics/antiplatelets; Z79.82 Long term (current) use of aspirin; Z79.899 Other long term (current) drug therapy
CPT/HCPCS: 71046; 93458; J7040; Q9967; C1769; C1894